=== PATIENT | female | born 1985 | race Caucasian/White ===

== ENCOUNTER 2017-05-12 16:33 | Emergency (ER) | payer OTHER ==
--- NOTE | ~2017-05-12 | ER ---
PATIENT'S NAME: HALINA MARX [facility] AGE: 32 Y [address] ROOM: [place] [address] LOCATION: [facility] ADMIT DATE: 05/12/2017 ER/Outpatient Report DISCHARGE DATE: 05/12/2017 FAMILY PHYSICIAN: Kenn Pinzon PA-C ATTENDING PHYSICIAN: Nell Escamilla Time of Arrival: 1633 hours. Time Seen: 1647 hours. IDENTIFICATION: A 32-year-old, female at 11 weeks' gestation, followed by Dr. Mcclendon. HISTORY OF PRESENT ILLNESS: The patient had an ultrasound at 8 weeks and then again last in the office and was doing well, but last night began having some vaginal bleeding. She was seen in [place] early this morning and they were able to Doppler heart tones, but did not have ultrasound capabilities. She has continued to bleed intermittently through the day, not quite saturating one pad an hour. She has no pain or cramping. ALLERGIES: NO KNOWN DRUG ALLERGIES. CURRENT MEDICATIONS: 1. Celexa 10 mg. 2. Insulin pump. 3. Metformin 850 mg daily. 4. vitamins. MEDICAL PROBLEMS: Diabetes mellitus, insulin requiring. SOCIAL HISTORY: The patient is . Lives in [place]. Tobacco use, denies. Alcohol use, denies. Drug use, denies. FAMILY HISTORY: No pertinent family history identified. REVIEW OF SYSTEMS: All systems reviewed and negative other than what is noted in the HPI. PHYSICAL EXAMINATION: VITAL SIGNS: Height 5 feet 6 inches, weight 91.1 kg, blood pressure 128/76, pulse 95, respirations 16, temperature 98.4, and saturations 98% on room air. PATIENT'S NAME: HALINA MARX [facility] AGE: 32 Y [address] ROOM: [place] [address] LOCATION: [facility] ADMIT DATE: 05/12/2017 ER/Outpatient Report DISCHARGE DATE: 05/12/2017 FAMILY PHYSICIAN: Kenn Pinzon PA-C ATTENDING PHYSICIAN: Nell Escamilla GENERAL: A 32-year-old female, in no acute distress. HEENT: Unremarkable. LUNGS: Clear to auscultation. HEART: Regular rate and rhythm. ABDOMEN: Soft, nondistended, and nontender. SKIN: [place], warm, and dry. No lesions or rashes noted. NEURO: No focal deficit. EXTREMITIES: No lower extremity edema. PELVIC: Exam was not repeated as it was just in [place] this morning. LABORATORY DATA: HCG 56,356. Hemoglobin 13. Blood type O positive per Dr. Mcclendon. Ultrasound reveals an intrauterine at 11 weeks 4 days, heart tones 165. IMPRESSION: First trimester bleeding. PLAN: Pelvic rest. Rest and fluids. Follow up tomorrow first thing in the morning with Dr. Mcclendon. Follow up sooner if any problems or concerns. I did discuss this with Dr. Mcclendon and the patient and her and they understand and agree, and all questions have been answered. MD HINA VOSS/brenda /[id number] d: 05/12/171902 t: 05/18/172018, OUTPATIENT REPORT
[2017-05-12 17:10] LABS: BASOPHIL % 0.2 %; EOSINOPHIL % 0.2 %; HEMATOCRIT 36.3 % (33.0-46.0); IMMATURE GRANULOCYTE % 0.4 %; LYMPHOCYTE # 1.4 K/uL (0.8-4.0); LYMPHOCYTE % 14.7 %; MCH 29.2 pg (27.0-34.0); MCHC 35.8 gm/dL (32.0-36.5); MCV 81.6 fl (83.0-98.0); MONOCYTE # 0.5 K/uL (0.0-1.0); MONOCYTE % 4.8 %; MPV 8.8 fl (9.4-12.4); NEUTROPHIL # (ANC) 7.7 K/uL (1.8-7.8); NEUTROPHIL % 79.7 %; NRBC % 0 /100WBC (0-0.00); PLATELET COUNT 203 K/uL (150-450); RBC 4.45 M/uL (3.50-5.50); RDW-CV 11.5 % (11.9-14.6); WBC 9.6 K/uL (4.0-11.0)
== END 2017-05-12 17:52 | disposition disaster alternative care site (69) ==
LOC: GMED 16:33
PROVIDERS: Family Medicine
DX: O20.9 Hemorrhage in early pregnancy, unspecified (principal); O24.911 Unspecified diabetes mellitus in pregnancy, first trimester; Z79.899 Other long term (current) drug therapy; Z96.41 Presence of insulin pump (external) (internal); Z3A.11 11 weeks gestation of pregnancy